=== PATIENT | male | born 1955 | race Caucasian/White ===

== ENCOUNTER 2019-12-01 06:50 | Day surgery (SDC) | payer BC, MEDICARE ==
[2019-11-29 12:23] VITALS: BMI 25.0
[~2019-12-01 06:50] MED LIST: LACTATED RINGERS 1,000 ML IV SCH; LIDOCAINE 1% 20 ML VIAL (10MG/ML) FOR IV START INTRADERMA PRN
[2019-12-01 07:10] VITALS: TEMP 97.3
[2019-12-01] MEDS ORDERED: MIDAZOLAM 2 MG/2 ML VIAL ONE (07:43)
[2019-12-01] MEDS ORDERED: PROPOFOL 10 MG/ML 20 ML VIAL IV ONE (07:43)
[2019-12-01] MEDS ORDERED: fentaNYL (PF) 50 MCG/ML 2 ML AMP ONE (07:43)
--- NOTE | 2019-12-01 07:48 | P.GSHP ---
History of Present Illness H&P Date: 12/01/19 Chief Complaint: Colon cancer screening Patient here today for colonoscopy. Last colonoscopy several years ago. No history of polyps. No bowel complaints. No family history. Past Medical History Past Medical History: Cancer, Hyperlipidemia Additional Past Medical History / Comment(s): HX KIDNEY CANCER History of Any Multi-Drug Resistant Organisms: None Reported Additional Past Surgical History / Comment(s): REMOVAL LT KIDNEY. COLONOSCOPY Past Anesthesia/Blood Transfusion Reactions: No Reported Reaction Smoking Status: Never smoker - Past Family History Mother Family Medical History: No Reported History Medications and Allergies Home Medications Medication Instructions Recorded Confirmed Type Simvastatin [Zocor] 20 mg PO HS 11/29/19 12/01/19 History Allergies Allergy/AdvReac Type Severity Reaction Status Date / Time metoclopramide [From Reglan] Allergy " STARTS Verified 11/29/19 12:20 SHAKING, AND LOSES CONTROL" Surgical - Exam Vital Signs Temp Pulse Resp BP Pulse Ox 97.3 F L 85 14 137/78 85 L 12/01/19 07:09 12/01/19 07:09 12/01/19 07:09 12/01/19 07:09 12/01/19 07:09 Physical exam: General: Well-developed, well-nourished HEENT: Normocephalic, sclerae nonicteric Abdomen: Nontender, nondistended Extremities: No edema Neuro: Alert and oriented Assessment and Plan (1) Colon cancer screening Narrative/Plan: Will proceed with colonoscopy at this time Current Visit: Yes Status: Acute Code(s): Z12.11 - ENCOUNTER FOR SCREENING FOR MALIGNANT NEOPLASM OF COLON SNOMED Code(s): 063547273
--- NOTE | 2019-12-01 08:14 | P.PCN ---
Date of Procedure: 12/01/19 Procedure(s) Performed: PREOPERATIVE DIAGNOSIS: Colon cancer screening POSTOPERATIVE DIAGNOSIS: Diverticulosis, small rectal polyp, tortuous colon PROCEDURE: Colonoscopy with snare polypectomy ANESTHESIA: MAC SURGEON: Cesar Ritchie M.D. SPECIMENS: Rectal polyp ENDOSCOPIC PROCEDURE: The patient was placed on the endoscopy table in the left decubitus position. The Olympus colonoscope was inserted into the anus and passed under direct visualization to the mid transverse colon. The patient's colon was tortuous and we were unable to advance more proximal despite various position changes and abdominal wall pressure. The transverse descending sigmoid colon appeared normal. In the rectum there was a small polyp that was removed using the snare with cautery technique. There was mild diverticulosis present. Digital rectal examination was normal. The patient was taken to the recovery room in stable condition per anesthesia guidelines. RECOMMENDATIONS: Await biopsy results. Recommend barium enema in 8 weeks to evaluate the proximal colon.
[2019-12-01 08:18] VITALS: PULSE 65
[2019-12-01 08:35] VITALS: BP 121/76; RESP 16
== END 2019-12-01 09:01 | disposition home or self-care (01) ==
LOC: ORWHC2ENDO 06:50
PROVIDERS: ATTEND Surgery
DX: Z12.11 Encounter for screening for malignant neoplasm of colon (principal); D12.8 Benign neoplasm of rectum; Q43.9 Congenital malformation of intestine, unspecified; K57.30 Diverticulosis of large intestine without perforation or abscess without bleeding; E78.5 Hyperlipidemia, unspecified; Z79.899 Other long term (current) drug therapy; Z85.528 Personal history of other malignant neoplasm of kidney; Z90.5 Acquired absence of kidney; Z88.8 Allergy status to other drugs, medicaments and biological substances
CPT/HCPCS: 88305; 45385; J2250; J3010; J2704

== ENCOUNTER → 2020-04-12 | Outpatient (CLI) | payer MEDICARE ==
--- NOTE | 2020-04-15 12:07 | FL ---
EXAMINATION TYPE: FL barium enema DATE OF EXAM: 04/12/2020 COMPARISON: NONE HISTORY: Failed colonoscopy TECHNIQUE: A double contrast barium enema study is performed. FINDINGS: Dynamics Ax Technical Architect view of the abdomen shows overall non-obstructive bowel gas pattern. Numerous surgic al clips are seen and there is severe arthropathy of the bilateral hips and degenerative change of th e spine There is redundancy of the colon. This limits the exam for small polyps or lesions. No evidence of any mass or polyp, obstructing or constricting lesion throughout the colon. No signif icant diverticular disease is noted. Changes of diverticulosis noted. Appendix was filled and appeared normal. The terminal ileum was refluxed and appears within normal l imits. Note is made of vascular majority of the bowel appears to be located within the left abdomen w ith only a portion of the cecum extending across the midline. Findings could been the basis of a ben enital malrotation or partial malrotation and could be correlated with CT scan. IMPRESSION: 1. Diverticulosis. 2. Overwhelming majority of the bowel appears to be within the left abdomen. Left portion of the cecu m extends across the midline. Correlate for malrotation or partial malrotation. This could be correla leona with CT scan.
== END | disposition home or self-care (01) ==
LOC: RADFLMAIN 10:20
PROVIDERS: ATTEND Surgery
DX: K57.90 Diverticulosis of intestine, part unspecified, without perforation or abscess without bleeding (principal)
CPT/HCPCS: 74270

== ENCOUNTER 2020-07-28 13:47 | Emergency (ER) | payer MEDICARE ==
[2020-07-28 13:55] VITALS: BP 158/85; PULSE 88; RESP 18; TEMP 98.2
[2020-07-28] MEDS ORDERED: FAMOTIDINE 20 MG TAB PO STA (14:04)
[2020-07-28] MEDS ORDERED: predniSONE 50 MG TAB PO STA (14:04)
--- NOTE | 2020-07-28 14:09 | ED ---
General Adult HPI - General Chief complaint: Allergic Reaction Stated complaint: Bee Sting - Allergy Time Seen by Provider: 07/28/20 13:50 Source: patient, RN notes reviewed, old records reviewed Mode of arrival: ambulatory Limitations: no limitations - History of Present Illness Initial comments: This is a 65-year-old male who presents emergency Department complaining that he was stung by 5 beats a minute. Patient states she was stung in the right arm multiple stings to the right leg and a 1 sting to the left leg. Patient denies any difficulty breathing or shortness of breath per patient denies any throat closing or difficulty swallowing. Patient states he took 50 of Benadryl before leaving home. Patient states in the past she's had quite a bit of swelling around a sting but never any difficulty breathing or swallowing. Patient states he is not sure what type of flying insect bit him but he thinks it was different than the last time he had been stung. Patient denies any lightheadedness or dizziness. Patient states he believes he was stung approximately 20 minutes prior to arrival. - Related Data Home Medications Medication Instructions Recorded Confirmed Simvastatin [Zocor] 20 mg PO HS 11/29/19 12/01/19 Previous Rx's Medication Instructions Recorded predniSONE [Deltasone] 40 mg PO DAILY #8 tab 07/28/20 Allergies Allergy/AdvReac Type Severity Reaction Status Date / Time metoclopramide [From Reglan] Allergy " STARTS Verified 07/28/20 13:51 SHAKING, AND LOSES CONTROL" Review of Systems ROS Statement: Those systems with pertinent positive or pertinent negative responses have been documented in the HPI. ROS Other: All systems not noted in ROS Statement are negative. Past Medical History Past Medical History: Cancer, Hyperlipidemia Additional Past Medical History / Comment(s): HX KIDNEY CANCER History of Any Multi-Drug Resistant Organisms: None Reported Additional Past Surgical History / Comment(s): REMOVAL LT KIDNEY. COLONOSCOPY Past Anesthesia/Blood Transfusion Reactions: No Reported Reaction Past Psychological History: No Psychological Hx Reported Smoking Status: Never smoker Past Alcohol Use History: Occasional Past Drug Use History: None Reported - Past Family History Mother Family Medical History: No Reported History General Exam - General Exam Comments Initial Comments: GENERAL: Patient is well-developed and well-nourished. Patient is nontoxic and well- hydrated and is in mild distress. ENT: Neck is soft and supple. No significant lymphadenopathy is noted. Oropharynx is clear. Moist mucous membranes. Neck has full range of motion without eliciting any pain. EYES: The sclera were anicteric and conjunctiva were pink and moist. Extraocular movements were intact and pupils were equal round and reactive to light. Eyelids were unremarkable. PULMONARY: Unlabored respirations. Good breath sounds bilaterally. No audible rales rhonchi or wheezing was noted. CARDIOVASCULAR: There is a regular rate and rhythm without any murmurs gallops or rubs. ABDOMEN: Soft and nontender with normal bowel sounds. SKIN: Skin is clear with no lesions or rashes and otherwise unremarkable. NEUROLOGIC: Patient is alert and oriented 3 cranial nerves II through XII are grossly intact motor and sensory are also intact MUSCULOSKELETAL: Normal extremities with adequate strength and full range of motion. Patient has some mild redness to the lateral aspect of the right forearm and 2 areas redness to the right leg anteriorly and one to the left leg anteriorly. There is no lump or swelling there is no hives noted LYMPHATICS: No significant lymphadenopathy is noted PSYCHIATRIC: Normal psychiatric evaluation. Limitations: no limitations Course Vital Signs 07/28/20 13:51 Temperature 98.2 F Pulse Rate 88 Respiratory 18 Rate Blood Pressure 158/85 O2 Sat by Pulse 97 Oximetry Disposition Clinical Impression: Allergic reaction to insect sting Disposition: HOME SELF-CARE Condition: Good Instructions (If sedation given, give patient instructions): Insect Bite or Sting (ED) Prescriptions: predniSONE [Deltasone] 40 mg PO DAILY #8 tab Is patient prescribed a controlled substance at d/c from ED?: No Referrals: Garrison العلي DO [Primary Care Provider] - 1-2 days Time of Disposition: 14:08
== END 2020-07-28 14:39 | disposition home or self-care (01) ==
LOC: EC 13:47
DX: T63.441A Toxic effect of venom of bees, accidental (unintentional), initial encounter (principal); E78.5 Hyperlipidemia, unspecified; Z79.899 Other long term (current) drug therapy; Z85.528 Personal history of other malignant neoplasm of kidney
CPT/HCPCS: 99283; J7512

== ENCOUNTER → 2020-12-01 | Outpatient (CLI) | payer MEDICARE ==
--- NOTE | 2020-12-01 22:25 | MR ---
EXAMINATION TYPE: MR hip LT wo con DATE OF EXAM: 12/01/2020 COMPARISON: None HISTORY: Left hip pain, falls, osteonecrosis Multiplanar multiecho imaging of the left hip was performed without contrast. There is 2.5 x 1 cm area of abnormal decreased signal on T1 images in the superior aspect left femora l head consistent with avascular necrosis. There is subchondral cystic changes on both sides of the h ip joint. There is moderately severe narrowing of the left hip joint space. The right hip joint appea rs intact without evidence of any significant subchondral cystic change or avascular necrosis. There is very slight flattening of the superior articular surface of the left femoral head. There is spurri ng on the femoral heads bilaterally. The sacroiliac joints are intact. IMPRESSION: Moderately severe osteoarthritis in the left hip joint with some mild features of chronic avascular n ecrosis of the superior aspect of the left femoral head.
== END | disposition home or self-care (01) ==
LOC: RADMRIMAIN 15:00
PROVIDERS: ATTEND Chiropractor
DX: M16.12 Unilateral primary osteoarthritis, left hip (principal); M87.852 Other osteonecrosis, left femur

== ENCOUNTER → 2021-01-06 | Outpatient (CLI) | payer MEDICARE | END | disposition home or self-care (01) | LOC: LABPAT 11:05 | PROVIDERS: ATTEND Orthopaedic Surgery | DX: Z01.812 Encounter for preprocedural laboratory examination (principal) | CPT/HCPCS: 87070 ==

== ENCOUNTER → 2021-01-10 | Outpatient (CLI) | payer MEDICARE ==
[2021-01-10 08:09] LABS: HCT 45.3 % (39.0-53.0); HGB 15.4 gm/dL (13.0-17.5); MCH 32.4 pg (25.0-35.0); MCHC 33.9 g/dL (31.0-37.0); MCV 95.6 fL (80.0-100.0); Mean Platelet Volume 8.5; Platelet Count 264 k/uL (150-450); RBC 4.74 m/uL (4.30-5.90); RDW 12.2 % (11.5-15.5); WBC 5.6 k/uL (3.8-10.6)
[2021-01-10 08:25] LABS: INR 0.9 (<1.2); Partial Thromboplastin Time 24.7 sec (22.0-30.0); Prothrombin Time 10.2 sec (9.0-12.0)
[2021-01-10 08:27] LABS: Albumin 4.7 g/dL (3.5-5.0); Potassium 4.8 mmol/L (3.5-5.1); Total Bilirubin 0.8 mg/dL (0.2-1.3); Total Protein 7.5 g/dL (6.3-8.2)
[2021-01-10 08:43] LABS: Appearance,Urine Clear (Clear); Bilirubin,Urine Negative (Negative); Blood,Urine Negative (Negative); Color,Urine Yellow; Glucose,Urine (UA) Negative (Negative); Ketones,Urine Negative (Negative); Leukocyte Esterase,Urine Negative (Negative); Nitrite,Urine Negative (Negative); PH, Urine 6.5 (5.0-8.0); Protein,Urine Negative (Negative); Urobilinogen,Urine <2.0 mg/dL (<2.0)
== END | disposition home or self-care (01) ==
LOC: LABPAT 07:20
PROVIDERS: ATTEND Orthopaedic Surgery
DX: Z01.818 Encounter for other preprocedural examination (principal); Z79.01 Long term (current) use of anticoagulants
CPT/HCPCS: 36415; 80053; 81003; 85027; 85610; 85730

== ENCOUNTER 2021-01-20 11:14 | Day surgery (SDC) | payer MEDICARE ==
[2021-01-13 13:53] VITALS: BMI 25.0
[~2021-01-20 11:14] MED LIST changes: +ACETAMINOPHEN TAB 500 MG TAB PO PRN; +GABAPENTIN 300 MG CAP PO PRN; -LACTATED RINGERS 1,000 ML IV SCH; +LIDOCAINE 1% (10MG/ML) FOR IV START INTRADERMA PRN; -LIDOCAINE 1% 20 ML VIAL (10MG/ML) FOR IV START INTRADERMA PRN; +MELOXICAM 7.5 MG TAB PO PRN; +MIDAZOLAM 2 MG/2 ML VIAL IV PRN; +ROPIVACAINE/EPI/CLONIDINE/KET 50 ML SYRINGE MISCELLANE PRN; +TRANEXAMIC ACID 1,000 MG in SODIUM CHLORIDE 0.9% 100 ML IVPB PRN
[2021-01-20] MEDS: LACTATED RINGERS 1,000 ML IV SCH ×2 (11:38→11:45)
[2021-01-20] MEDS: ONDANSETRON 4 MG/2 ML VIAL IVP ONE ×2 (11:48→12:07)
[2021-01-20] MEDS: DEXAMETHASONE SOD PHOSPHATE 4 MG/ML 1 ML VIAL IV ONE ×2 (11:48→12:07)
[2021-01-20] MEDS ORDERED: HYDROmorphone 0.2 MG/1 ML SYRINGE IVP PRN (12:14)
[2021-01-20] MEDS ORDERED: HYDROmorphone 0.5 MG/0.5 ML SYRINGE IVP PRN ×2 (12:14)
[2021-01-20] MEDS ORDERED: NALOXONE 0.4 MG/ML 1 ML VIAL IV PRN (12:14)
[2021-01-20] MEDS ORDERED: SODIUM CHLORIDE 0.9% 1,000 ML IV SCH (12:15)
[2021-01-20] MEDS ORDERED: HYDROcodone/APAP 7.5-325MG 1 EACH TAB PO PRN ×2 (12:20)
[2021-01-20] MEDS ORDERED: PROPOFOL 10 MG/ML 20 ML VIAL IV ONE (12:22)
[2021-01-20] MEDS ORDERED: MIDAZOLAM 2 MG/2 ML VIAL ONE (12:22)
[2021-01-20] MEDS ORDERED: fentaNYL (PF) 50 MCG/ML 2 ML AMP ONE (12:22)
[2021-01-20] MEDS ORDERED: TRANEXAMIC ACID 1,000 MG/10 ML VIAL ONE (12:22)
[2021-01-20] MEDS ORDERED: NEOSTIGMINE 1 MG/ML 10 ML VIAL ONE (12:22)
[2021-01-20] MEDS ORDERED: ROCURONIUM 10 MG/ML (5 ML VIAL) IV ONE (12:22)
[2021-01-20] MEDS ORDERED: SODIUM CHLORIDE 0.9% 100 ML BAG ONE (12:22)
[2021-01-20] MEDS ORDERED: SODIUM CHLORIDE 0.9% IRRIG 1,000 ML BTL IRRIGATION ONE (12:22)
[2021-01-20] MEDS ORDERED: SUCCINYLCHOLINE CHLORIDE 100 MG/5 ML SYR IV ONE (12:22)
[2021-01-20] MEDS ORDERED: LIDOCAINE 1% INJ 10MG/ML (20 ML MDV) ONE (12:22)
[2021-01-20] MEDS ORDERED: HEPARIN SODIUM,PORCINE 10,000 UNIT/ML 1 ML VIAL ONE (12:22)
[2021-01-20] MEDS ORDERED: GLYCOPYRROLATE 0.2 MG/ML 2 ML VIAL ONE (12:22)
--- NOTE | 2021-01-20 13:44 | P.OP ---
Date of Procedure: 01/20/21 Preoperative Diagnosis: Severe osteoarthritis left hip Postoperative Diagnosis: Severe osteoarthritis left hip Procedure(s) Performed: Left total hip arthroplasty with a direct anterior approach Implants: [employer] Polarstem standard size 3 [employer] R3, 3 hole hemispherical acetabular shell, 54 mm [employer] Reflection 6.5 mm cancellus screw, 20 mm 2 [employer] R3, XLPE 20 acetabular liner [employer] Oxinium femoral head 36 m, +0 All components were press-fit. The articulation is Oxinium on polyethylene. Anesthesia: GETA Surgeon: Nitish Nunez Telegraph Dispatcher #1: Katrin Barkley Estimated Blood Loss (ml): 300 (137 mL returned with Cell Saver) Pathology: other (Femoral head) Condition: stable Disposition: PACU Indications for Procedure: After failure of conservative treatment we discussed the surgical and nonsurgical treatment options at length. Patient wishes to proceed with a total hip arthroplasty with a direct anterior approach. Complications specific to this procedure were discussed at length, including but not limited to infection, leg length discrepancy, dislocation, nerve injury, and fracture. Covid-19 was also discussed at length with the patient, and they are aware of the current policies and procedures. The patient was given the option of delaying surgery, but they elect to proceed knowing these risks. Patient is aware of all these complications and informed consent was obtained Operative Findings: The operative findings are consistent with severe osteoarthritis of the left hip Description of Procedure: Patient was seen and evaluated in the preoperative area and the consent was reviewed. The operative site was marked with a skin marker. The patient was then brought to the operating room and given preoperative antibiotics intravenously. 1 g of Tranexamic acid was also given intravenously. A general anesthetic was administered by the anesthesia department. The patient was then placed on the [place] table with the bony prominences well-padded. The hip area was then prepped with a ChloraPrep solution and draped in the usual sterile fashion. A universal timeout was then performed, which confirmed the patient's name, surgical site, ALLERGIES, and procedure being performed on the consent. Next the incision site was located at 1 cm distal to the anterior superior iliac spine along the flexion crease of the left hip. The skin and subcutaneous tissues were sharply incised. Incision was carefully dissected down to the fascia overlying the tensor fascia milan muscle. This fascia was then incised in line with the incision. Care was taken to stay laterally in order to avoid injuring the lateral femoral cutaneous nerve. Next, using blunt finger dissection, the tensor fascia milan muscle was dissected off its investing fascia. The muscle was then carefully retracted laterally with a cobra retractor over the lateral neck of the femur. Next, the circumflex vessels were identified and cauterized using the AquaMantis device. The anterior hip capsule was then exposed. The capsule was then opened and an inverted T fashion. Cobra retractors were then placed intracapsularly. The retractors were maintained intracapsular throughout the procedure. The proximal femur was then visualized. A small amount of traction was placed on the leg. The femoral neck was then osteotomized appropriate level above the lesser trochanter. A small wedge of bone was then removed from the remaining femoral head. Next, using a corkscrew the femoral head was removed from the acetabulum. On gross visual inspection, the femoral head had complete loss of articular cartilage and multiple periarticular osteophytes. The femoral head was then measured. Attention was then turned to the acetabulum. The acetabulum was exposed and any remaining labrum was excised. Sequential reaming of the acetabulum was performed using fluoroscopic guidance until there was a good bed of bleeding cancellus bone. When the appropriate size was reached, a trial was then placed. The position and fit of the trial was checked with fluoroscopy. The trial was then removed. Then, using fluoroscopic david nce, the final implant was impacted at 20 of anteversion and 40 of abduction, and fully seated in the acetabulum. 2 screws were then placed in the acetabulum. Again fluoroscopy was used to check position of the screws. Next, the liner was then impacted, with a 20 elevated liner located in the anterior superior quadrant. Component locking was confirmed. Attention was then directed to the femur. With the aid of the [place] table, the femur was externally rotated to approximately 130, extended, and adducted under the opposite leg. A side hook was then placed under the proximal femur, and the side hook elevator was used to elevate the proximal femur while releasing the capsule. Retractors were then placed. A capsular release was performed, as well as a release of the conjoined tendon, which afforded excellent visualization of the proximal femur. Next, a box osteotome was used to lateralize the proximal femur. A stock handler floorperson was then used to locate the femoral canal. Sequential broaching was then performed with appropriate size which afforded excellent fixation in the proximal femur. A trial was then placed with appropriate head and neck, and the hip was gently reduced with the aid of the [place] table. Fluoroscopy was then used to check position of the components, as well as to ensure equal leg lengths. The hip was then gently dislocated and the trials were then removed. Final implants were then impacted and the hip was again reduced. Final fluoroscopic x-rays confirmed that the components were in anatomic position, as well as equal leg lengths. The hip was also taken through range of motion, and found to be stable. The hip was then copiously irrigated with antibiotic solution with pulsatile lavage. The hip was then irrigated with Irrisept solution. The soft tissues were then injected with a ropivacaine solution, which consisted of 246.25 mg of ropivacaine, 0.5 mg of epinephrine, 30 mg of Toradol, 80 g of clonidine, and 48.45 mL of sterile water, for a total of 100 mL of fluid injected. A second dose of 1 g of Tranexamic acid was also given intravenously. Any blood collected by Cell Saver was then returned to the patient at this time. The fascia was then closed with 2-0 strata fix suture. The subcutaneous tissue was closed with 3-0 Vicryl. The subcuticular tissue was closed with 3-0 strata fix suture. The skin was then closed with Exofin skin glue. After the glue and dried, and Optifoam silver impregnated dressing was applied. The patient was then transferred to the recovery room in stable condition. The diploma dental assistant ANGELINE Fung was required due to the complexity of surgery, and the need for skilled surgical sales representative for positioning, draping, exposure, retraction, and closure of the wound.
--- NOTE | 2021-01-20 13:57 | FL ---
EXAMINATION TYPE: FL guidance operating room, XR Hip Limited LT DATE OF EXAM: 01/20/2021 CLINICAL HISTORY: Left hip pain. TECHNIQUE: Fluoroscopy. Limited intraoperative views left hip. COMPARISON: MRI left hip December 01, 2020. FINDINGS: Fluoroscopic guidance was provided during left hip replacement procedure performed by Dr. Nunez. A total of 27 seconds of fluoroscopic time was utilized during the procedure and two spot intraoperative images are acquired. Intraoperative images acquired show metallic hardware from total left hip arthroplasty satisfactory i n position on frontal projection. IMPRESSION: As Above.
[2021-01-20] MEDS: HYDROmorphone 0.5 MG/0.5 ML SYRINGE IVP PRN ×4 (14:08→14:40)
[2021-01-20 14:17] VITALS: TEMP 97.3
--- NOTE | 2021-01-20 14:50 | XR ---
EXAMINATION TYPE: XR Hip Limited LT DATE OF EXAM: 01/20/2021 CLINICAL HISTORY: Left hip pain and osteoarthritis. TECHNIQUE: Single AP portable view of left hip is obtained immediately postoperatively. COMPARISON: None. FINDINGS: Metallic hardware from left hip arthroplasty is seen and appears satisfactory in alignment and position. There is evidence of recent surgery with surrounding subcutaneous gas noted . IMPRESSION: Metallic hardware from left hip arthroplasty is satisfactory in position.
[2021-01-20] MEDS ORDERED: HYDROcodone/APAP 7.5-325MG 1 EACH TAB PO ONE (15:40)
[2021-01-20 16:34] VITALS: RESP 18
[2021-01-20 18:25] VITALS: BP 140/70; PULSE 98
== END 2021-01-20 18:55 | disposition home health service (06) ==
LOC: OR 11:14
PROVIDERS: ATTEND Orthopaedic Surgery
DX: M16.12 Unilateral primary osteoarthritis, left hip (principal); E78.5 Hyperlipidemia, unspecified; Z79.899 Other long term (current) drug therapy; Z88.8 Allergy status to other drugs, medicaments and biological substances; Z90.5 Acquired absence of kidney; Z85.528 Personal history of other malignant neoplasm of kidney
CPT/HCPCS: 97110; 97161; 86891; 88300; 73501; 27130; C1776; J2250; J1644; J1100; J2710; J0690; J2405; J2001; J3010; J0330; J2704; J1170; 86850; 86900; 86901

== ENCOUNTER → 2025-03-02 | Outpatient (CLI) | payer MEDICARE ==
[2025-03-02 09:43] LABS: Partial Thromboplastin Time 24.3 sec (22.0-30.0); Prothrombin Time 10.9 sec (10.0-12.5)
[2025-03-02 15:09] LABS: HCT 42.8 % (39.6-50.0); HGB 14.5 g/dL (13.0-17.0); MCHC 33.9 g/dL (32.0-37.0); MCV 97.5 FL (80.0-97.0); Mean Platelet Volume 11.6 FL (9.5-12.2); NRBC Per 100 WBC 0 X 10*3/uL (0.00-0.01); Platelet Count 259 X 10*3/uL (140-440); RBC 4.39 X 10*6/uL (4.40-5.60); RDW 11.9 % (11.5-14.5); WBC 6.14 X 10*3/uL (4.50-10.00)
[2025-03-02 16:38] LABS: ALT 24 U/L (10-49); AST 22 U/L (14-35); Albumin 4.4 g/dL (3.8-4.9); Alkaline Phosphatase 61 U/L (41-126); BUN/Creat Ratio 15.07 Ratio (12.00-20.00); Blood Urea Nitrogen 21.1 mg/dL (9.0-27.0); Calcium 9.5 mg/dL (8.7-10.3); Carbon Dioxide 25.3 mmol/L (21.6-31.8); Chloride 105 mmol/L (96-109); Globulin 2.2 g/dL (1.6-3.3); Glucose 112 mg/dL (70-110); Potassium 4.5 mmol/L (3.5-5.5); Sodium 141 mmol/L (135-145); Total Bilirubin 0.6 mg/dL (0.3-1.2); Total Protein 6.6 g/dL (6.2-8.2)
== END | disposition home or self-care (01) ==
LOC: LABPAT 08:26
PROVIDERS: ATTEND Orthopaedic Surgery
DX: Z01.818 Encounter for other preprocedural examination (principal); M16.11 Unilateral primary osteoarthritis, right hip; Z22.322 Carrier or suspected carrier of Methicillin resistant Staphylococcus aureus
CPT/HCPCS: 36415; 80053; 85027; 85610; 85730; 86850; 86900; 86901; 87070

== ENCOUNTER 2025-03-12 05:33 | Day surgery (SDC) | payer MEDICARE ==
[2025-03-02 13:35] VITALS: BMI 25.0
[~2025-03-12 05:33] MED LIST changes: -ACETAMINOPHEN TAB 500 MG TAB PO PRN; -GABAPENTIN 300 MG CAP PO PRN; -LIDOCAINE 1% (10MG/ML) FOR IV START INTRADERMA PRN; -MELOXICAM 7.5 MG TAB PO PRN; -MIDAZOLAM 2 MG/2 ML VIAL IV PRN; -ROPIVACAINE/EPI/CLONIDINE/KET 50 ML SYRINGE MISCELLANE PRN; +TRANEXAMIC 1,000 MG/100ML-NACL 1,000 MG in SALINE 1 100ML.BAG IVPB PRN; -TRANEXAMIC ACID 1,000 MG in SODIUM CHLORIDE 0.9% 100 ML IVPB PRN
[2025-03-12] MEDS: LACTATED RINGERS 1,000 ML IV SCH (06:18)
[2025-03-12] MEDS: IV FLUID CONTINUATION 1,000 ML IV ONE ×4 (06:20→10:18)
[2025-03-12] MEDS: MELOXICAM 7.5 MG TAB PO PRN (06:25)
[2025-03-12] MEDS: ONDANSETRON 4 MG/2 ML VIAL IVP ONE (06:25)
[2025-03-12] MEDS: ACETAMINOPHEN TAB 500 MG TAB PO PRN (06:25)
[2025-03-12] MEDS: GABAPENTIN 300 MG CAP PO PRN (06:25)
[2025-03-12] MEDS: MIDAZOLAM 2 MG/2 ML VIAL IV ONE (06:42)
[2025-03-12] MEDS ORDERED: DEXAMETHASONE SOD PHOSPHATE 4 MG/ML 1 ML VIAL ONE (06:51)
[2025-03-12] MEDS ORDERED: LIDOCAINE 1% INJ 10MG/ML (20 ML MDV) ONE (06:51)
[2025-03-12] MEDS ORDERED: ROPIVACAINE 5 MG/ML 30 ML VIAL ONE (06:51)
[2025-03-12] MEDS ORDERED: HYDROmorphone (PF) 1 MG/ML ONE (06:51)
[2025-03-12] MEDS ORDERED: PROPOFOL 10 MG/ML 20 ML VIAL IV ONE (06:51)
[2025-03-12] MEDS ORDERED: SUCCINYLCHOLINE CHLORIDE 200 MG/10 ML VIAL IV ONE (06:51)
[2025-03-12] MEDS ORDERED: fentaNYL (PF) 50 MCG/ML 2 ML AMP ONE (06:51)
[2025-03-12] MEDS ORDERED: TRANEXAMIC 1,000 MG/100ML-NACL PREMIX BAG ONE (06:51)
[2025-03-12] MEDS: DEXAMETHASONE SOD PHOSPHATE 4 MG/ML 1 ML VIAL IVP STA (06:53)
[2025-03-12] MEDS: GABAPENTIN 300 MG CAP PO STA (06:53)
[2025-03-12] MEDS: ceFAZolin 2 GM in DEXTROSE 5% IN WATER 50 ML IVPB PRN (06:56)
[2025-03-12] MEDS: ceFAZolin 1,000 MG in SODIUM CHLORIDE 0.9% 1,000 ML IRRIGATION ONE (06:56)
[2025-03-12] MEDS: ROPIVACAINE 5 MG/ML 30 ML VIAL MISCELLANE ONE ×2 (07:25→08:01)
--- NOTE | 2025-03-12 08:10 | P.OP ---
Date of Procedure: 03/12/25 Preoperative Diagnosis: Severe osteoarthritis, right hip Postoperative Diagnosis: Severe osteoarthritis, right hip Procedure(s) Performed: Right total hip arthroplasty with a direct anterior approach Implants: [employer] Polarstem standard size 2 with a collar [employer] R3, 3 hole hemispherical acetabular shell, 52 mm [employer] Reflection 6.5 mm cancellus screws, 20 mm 2 [employer] R3, XLPE 20 acetabular liner [employer] Oxinium femoral head 36 mm, +0 All components were press-fit. The articulation is Oxinium on polyethylene. Anesthesia: GETA Surgeon: Nitish Nunez Pastoral Counselor #1: Barak Ferreira Estimated Blood Loss (ml): 350 Pathology: none sent Condition: stable Disposition: PACU Indications for Procedure: After failure of conservative treatment we discussed the surgical and nonsurgi guillermo treatment options at length. Patient wishes to proceed with a total hip arthroplasty with a direct anterior approach. Complications specific to this procedure were discussed at length, including but not limited to infection, leg length discrepancy, dislocation, nerve injury, and fracture. Covid-19 was also discussed at length with the patient, and they are aware of the current policies and procedures. The patient was given the option of delaying surgery, but they elect to proceed knowing these risks. Patient is aware of all these complications and informed consent was obtained Operative Findings: The operative findings are consistent with severe osteoarthritis of the right hip Description of Procedure: The patient was seen and evaluated in the preoperative area and the consent was reviewed. The operative site was marked with a skin marker. The patient verified the procedure and operative site. A GONZALES block was placed by anesthesia in the preoperative area. The patient was then brought to the operating room and given preoperative antibiotics intravenously. 1 g of Tranexamic acid was also given intravenously. A general anesthetic was administered by the anesthesia department. The patient was then placed on the Tennille table with the bony prominences well-padded. The hip area was then prepped with a ChloraPrep solution and draped in the usual sterile fashion. A universal timeout was then performed, which confirmed the patient's name, surgical site, ALLERGIES, and procedure being performed on the consent. Next the incision site was located at 1 cm distal and 4 cm lateral to the anterior superior iliac spine. The skin and subcutaneous tissues were sharply incised. Incision was carefully dissected down to the fascia overlying the tensor fascia milan muscle. This fascia was then incised in line with the muscle fibers. Care was taken to stay laterally in order to avoid injuring the lateral femoral cutaneous nerve. Next, using blunt finger dissection, the tensor fascia milan muscle was dissected off its investing fascia. The muscle was then carefully retracted laterally with a cobra retractor over the lateral neck of the femur. Next, the circumflex vessels were identified and cauterized using the Aquamantis device. The anterior hip capsule was then exposed. The capsule was then opened and an inverted T fashion. The retractors were then placed intracapsularly. The retractors were maintained intracapsular throughout the procedure. The proximal femur was then visualized. Fluoroscopic x-rays were then taken in order to evaluate the preoperative leg lengths. A small amount of traction was placed on the leg. The femoral neck was then osteotomized at the appropriate level above the lesser trochanter. A small wedge of bone was then removed from the remaining femoral head. Next, using a corkscrew the femoral head was removed from the acetabulum. On gross visual inspection, the femoral head had complete loss of articular cartilage and multiple periarticular osteophytes. The femoral head was then measured. Attention was then turned to the acetabulum. The acetabulum was exposed and any remaining labrum was excised. Sequential reaming of the acetabulum was performed using fluoroscopic guidance until there was a good bed of bleeding cancellus bone. When the appropriate size was reached, a trial was then placed. The position and fit of the trial was checked with fluoroscopy. The trial was then removed. Then, using fluoroscopic guidance, the final implant was impacted at 20 of anteversion and 40 of abduction, and fully seated in the acetabulum. 2 screws were then placed in the acetabulum. Again fluoroscopy was used to check position of the screws. Next, the liner was then impacted, with a 20 elevated liner located in the anterior superior quadrant. Component locking was confirmed. Attention was then directed to the femur. With the aid of the Tennille table, the femur was externally rotated to approximately 130, extended, and adducted under the opposite leg. A side hook was then placed under the proximal femur, and the side hook elevator was used to elevate the proximal femur while releasing the capsule. Retractors were then placed. A capsular release was performed, as well as a release of the conjoined tendon, which afforded excellent vis ualization of the proximal femur. Next, a box osteotome was used to lateralize the proximal femur. A merchandise carrier was then used to locate the femoral canal. Sequential broaching was then performed with appropriate size which afforded excellent fixation in the proximal femur. A trial was then placed with appropriate head and neck, and the hip was gently reduced with the aid of the Tennille table. Fluoroscopy was then used to check position of the components, as well as to evaluate the leg lengths and offset. The leg lengths and offset were measured as closely as possible to ensure stability of the hip. The hip was then gently dislocated and the trials were then removed. Final implants were then impacted and the hip was again reduced. Final fluoroscopic x-rays confirmed that the components were in anatomic position. The leg lengths and offset were measured and were found to coincide with the trial measurements. The hip was also taken through range of motion, and found to be stable. The hip was then copiously irrigated with antibiotic solution with pulsatile lavage. The hip was then irrigated with Irrisept solution. The soft tissues were then injected with a ropivacaine solution. A second dose of 1 g of Tranexamic acid was also given intravenously. The fascia was then closed with 2-0 strata fix suture. The subcutaneous tissue was closed with 3-0 Vicryl. The subcuticular tissue was closed with 3-0 moncryl suture. The skin was then closed with Exofin skin glue. After the glue and dried, and Optifoam silver impregnated dressing was applied. The patient was then transferred to the recovery room in stable condition. The undertaker assistant ANGELINE Armendariz was required due to the complexity of surgery, and the need for skilled surgical rn for positioning, draping, exposure, retraction, and closure of the wound.
--- NOTE | 2025-03-12 08:26 | XR ---
Fluoroscopy History: RT ANTERIOR HIP OA RT HIP RT ANTERIOR HIP 35 SEC [id number] [facility], , 03/12/2025 8:23 AM
[2025-03-12] MEDS ORDERED: NALOXONE 0.4 MG/ML 1 ML VIAL IV PRN (08:41)
[2025-03-12] MEDS ORDERED: HYDROmorphone 0.5 MG/0.5 ML SYRINGE IVP PRN ×3 (08:42)
[2025-03-12] MEDS ORDERED: MAGNESIUM HYDROXIDE 2,400 MG/30 ML CUP PO PRN (08:42)
[2025-03-12] MEDS ORDERED: HYDROcodone/APAP 5-325MG 1 EACH TAB PO PRN (08:42)
[2025-03-12] MEDS ORDERED: SODIUM CHLORIDE 0.9% 1,000 ML IV SCH (08:45)
[2025-03-12] MEDS: HYDROmorphone 0.5 MG/0.5 ML SYRINGE IVP PRN (08:50)
[2025-03-12] MEDS ORDERED: ASPIRIN 81 MG PO SCH (09:00)
[2025-03-12 09:01] VITALS: TEMP 97
[2025-03-12] MEDS ORDERED: MEPERIDINE 25 MG/ML SYRINGE IVP STA (09:14)
[2025-03-12] MEDS ORDERED: MEPERIDINE 50 MG/ML SYRINGE IVP STA (09:17)
--- NOTE | 2025-03-12 09:28 | XR ---
EXAMINATION TYPE: XR Hip Limited RT DATE OF EXAM: 03/12/2025 9:18 AM COMPARISON: None. CLINICAL INDICATION: Male, 69 years old with history of Status post hip surgery, assess surgical cherelle rose, Postoperative evaluation TECHNIQUE: XR Hip Limited RT views were obtained FINDINGS: Noted are changes of total hip arthroplasty with femoral and acetabular components appearing well sea leona. Alignment is anatomic. Postsurgical soft tissue changes are evident. IMPRESSION: Satisfactory postoperative alignment [facility], , 03/12/2025 9:25 AM
[2025-03-12] MEDS: KETOROLAC 15 MG/ML 1 ML VIAL IVP STA (09:29)
[2025-03-12] MEDS: droPERidol 2.5 MG/ML VIAL IVP STA (09:54)
[2025-03-12] MEDS: HYDROcodone/APAP 7.5-325MG 1 EACH TAB PO PRN (10:26)
[2025-03-12 13:20] VITALS: BP 145/76; PULSE 75; RESP 16
--- NOTE | 2025-03-12 14:06 | P.ANPRN ---
Procedure Note - Anesthesia - Nerve Block Performed Right Yogesh Single Time Out Performed: Yes Date of Procedure: 03/12/25 Procedure Start Time: 06:42 Procedure Stop Time: 06:48 Location of Patient: PreOp Indication: Acute Post-Operative Pain, Requested by Surgeon Sedation Type: Sedate with meaningful contact maintained Preparation: Sterile Prep Position: Supine Needle Types: Pajunk Needle Gauge: 21 Ultrasound used to visualize needle placement: Yes Ultrasound used to observe medication spread: Yes Blood Aspirated: No Pain Paresthesia on Injection Noted: No Resistance on Injection: Normal Image Stored and Saved: Yes Events: Uneventful and Well Tolerated (Ropivacaine 0.5% 20 cc plus dexamethasone 4 mg)
[2025-03-12] MEDS ORDERED: SENNOSIDES-DOCUSATE SODIUM 1 EACH TAB PO SCH (21:00)
== END 2025-03-12 13:00 | disposition home or self-care (01) ==
LOC: OR 05:33
PROVIDERS: ATTEND Orthopaedic Surgery
DX: M16.11 Unilateral primary osteoarthritis, right hip (principal); G89.18 Other acute postprocedural pain; E78.5 Hyperlipidemia, unspecified
CPT/HCPCS: 97161; 64473; 73501; 27130; C1776; J2250; J0330; J1100; J0690 ×2; J2405; J2003; J3010; J1171 ×2; J2795; J1885; J2704; J1790